=== PATIENT | male | born 1985 | race Caucasian/White ===

== ENCOUNTER 2017-03-15 23:38 | Emergency (ER) | payer SELFPAY ==
[~2017-03-15] VITALS: Ht 180.3 cm; Wt 91.0 kg
[2017-03-15 23:46] VITALS: BP 111/84
== END 2017-03-16 00:01 | disposition left against medical advice (07) ==
LOC: ER 23:49
DX: T65.91XA Toxic effect of unspecified substance, accidental (unintentional), initial encounter (principal); Z53.21 Procedure and treatment not carried out due to patient leaving prior to being seen by health care provider